=== PATIENT | female | born 1935 | race Caucasian/White ===

== ENCOUNTER → 2018-06-23 | Outpatient (CLI) | payer MEDICARE, BC ==
[~2018-06-23] MED LIST: DENOSUMAB 60 MG/ML 1 ML SYRINGE SQ ONE
[2018-06-23 13:03] VITALS: BP 151/86; PULSE 79; RESP 16; TEMP 97.8
== END | disposition home or self-care (01) ==
LOC: PROCWHC3 12:32
PROVIDERS: ATTEND Internal Medicine
DX: M81.0 Age-related osteoporosis without current pathological fracture (principal)
CPT/HCPCS: 96372; J0897

== ENCOUNTER → 2018-12-23 | Outpatient (CLI) | payer MEDICARE, BC ==
[2018-12-23 13:54] VITALS: BP 117/74; PULSE 69; RESP 16; TEMP 97.4
== END | disposition home or self-care (01) ==
LOC: PROCWHC3 13:23
PROVIDERS: ATTEND Internal Medicine
DX: M81.0 Age-related osteoporosis without current pathological fracture (principal)
CPT/HCPCS: 96372; J0897

== ENCOUNTER → 2019-07-28 | Outpatient (CLI) | payer MEDICARE, BC ==
[~2019-07-28] MED LIST changes: +DENOSUMAB 60 MG/ML 1 ML SYRINGE SQ NR
[2019-07-28 13:41] VITALS: BP 127/78; PULSE 88; RESP 18; TEMP 97.6
== END | disposition home or self-care (01) ==
LOC: PROCWHC3 12:43
PROVIDERS: ATTEND Internal Medicine
DX: M81.0 Age-related osteoporosis without current pathological fracture (principal)
CPT/HCPCS: 96372; J0897

== ENCOUNTER → 2020-04-14 | Outpatient (CLI) | payer MEDICARE, BC ==
--- NOTE | 2020-04-15 11:00 | ECHOF ---
Referral Reason:I51.7 cardiomegaly MEASUREMENTS -------- HEIGHT: 147.3 cm WEIGHT: 63.5 kg BP: 165/74 RVIDd: 3.1 cm (< 3.3) IVSd: 1.1 cm (0.6 - 1.1) LVIDd: 3.8 cm (3.9 - 5.3) LVPWd: 1.1 cm (0.6 - 1.1) IVSs: 1.6 cm LVIDs: 2.5 cm LVPWs: 1.7 cm LA Diam: 3.3 cm (2.7 - 3.8) LAESV Index (A-L): 15.45 ml/m Ao Diam: 2.9 cm (2.0 - 3.7) AV Cusp: 2.0 cm (1.5 - 2.6) MV EXCURSION: 19.848 mm (> 18.000) MV EF SLOPE: 50 mm/s (70 - 150) EPSS: 0.5 cm MV E Tariq: 0.79 m/s MV DecT: 222 ms MV A Tariq: 1.17 m/s MV E/A Ratio: 0.68 RAP: 5.00 mmHg RVSP: 34.74 mmHg FINDINGS -------- Sinus rhythm. This was a technically good study. The left ventricular size is normal. There is borderline concentric left ventricular hypertrophy. Overall left ventricular systolic function is normal with, an EF between 60 - 65 %. The right ventricle is normal in size. Normal LA size by volume 22+/-6 ml/m2. The right atrium is normal in size. Interatrial and interventricular septum intact. There is mild aortic valve sclerosis. The mitral valve is normal. Mild tricuspid regurgitation present. There is mild pulmonary hypertension. The right ventricular systolic pressure, as measured by Doppler, is 34.74mmHg. Trace/mild (physiologic) pulmonic regurgitation. The aortic root size is normal. Normal inferior vena cava with normal inspiratory collapse consistent with estimated right atrial pre ssure of 5 mmHg. There is no pericardial effusion. CONCLUSIONS -------- 1. Sinus rhythm. 2. This was a technically good study. 3. The left ventricular size is normal. 4. There is borderline concentric left ventricular hypertrophy. 5. Overall left ventricular systolic function is normal with, an EF between 60 - 65 %. 6. There is mild aortic valve sclerosis. 7. Mild tricuspid regurgitation present. 8. There is mild pulmonary hypertension. 9. The right ventricular systolic pressure, as measured by Doppler, is 34.74mmHg. 10. Trace/mild (physiologic) pulmonic regurgitation. 11. There is no pericardial effusion. CERTIFIED VETERINARY TECHNICIAN: Bernarda Galaviz RDCS
== END | disposition home or self-care (01) ==
LOC: RADECHMAIN 12:10
PROVIDERS: ATTEND Internal Medicine
DX: I07.1 Rheumatic tricuspid insufficiency (principal); I35.0 Nonrheumatic aortic (valve) stenosis; I27.20 Pulmonary hypertension, unspecified
CPT/HCPCS: 93306

== ENCOUNTER → 2020-07-12 | Outpatient (CLI) | payer MEDICARE, BC ==
[~2020-07-12] MED LIST changes: -DENOSUMAB 60 MG/ML 1 ML SYRINGE SQ ONE
[2020-07-12 14:21] VITALS: BP 142/81; PULSE 93; RESP 16; TEMP 97.6
== END | disposition home or self-care (01) ==
LOC: PROCWHC3 13:55
PROVIDERS: ATTEND Internal Medicine
DX: M81.0 Age-related osteoporosis without current pathological fracture (principal)
CPT/HCPCS: 96372; J0897

== ENCOUNTER → 2021-02-03 | Outpatient (CLI) | payer MEDICARE, BC ==
[2021-02-03 11:26] VITALS: BP 147/79; PULSE 89; RESP 16; TEMP 97.6
== END ==
LOC: PROCWHC3 11:16
PROVIDERS: ATTEND Family Medicine
DX: M81.0 Age-related osteoporosis without current pathological fracture (principal); Z88.0 Allergy status to penicillin; Z88.3 Allergy status to other anti-infective agents
CPT/HCPCS: 96372; J0897

== ENCOUNTER → 2021-10-05 | Outpatient (CLI) | payer MEDICARE, BC ==
[2021-10-05 13:17] VITALS: BP 140/86; PULSE 87; RESP 15; TEMP 97.6
== END | disposition home or self-care (01) ==
LOC: PROCWHC3 12:42
PROVIDERS: ATTEND Family Medicine
DX: M81.0 Age-related osteoporosis without current pathological fracture (principal)
CPT/HCPCS: 96372; J0897

== ENCOUNTER → 2022-04-20 | Outpatient (CLI) | payer MEDICARE, BC ==
[~2022-04-20] MED LIST changes: -DENOSUMAB 60 MG/ML 1 ML SYRINGE SQ NR; +DENOSUMAB 60 MG/ML 1 ML SYRINGE SQ ONE
[2022-04-20 10:31] VITALS: BP 152/67; PULSE 87; RESP 16; TEMP 97.8
== END ==
LOC: PROCWHC3 10:03
PROVIDERS: ATTEND Family Medicine
DX: M81.0 Age-related osteoporosis without current pathological fracture (principal); Z88.1 Allergy status to other antibiotic agents; Z91.041 Radiographic dye allergy status; Z88.8 Allergy status to other drugs, medicaments and biological substances
CPT/HCPCS: 96372; J0897

== ENCOUNTER → 2023-01-04 | Outpatient (CLI) | payer MEDICARE, BC ==
[~2023-01-04] MED LIST changes: +DENOSUMAB 60 MG/ML 1 ML SYRINGE SQ NR; -DENOSUMAB 60 MG/ML 1 ML SYRINGE SQ ONE; +SODIUM CHLORIDE 0.9% 500 ML 500 ML in EMPTY BAG 1 BAG IV PRN
[2023-01-04 08:35] VITALS: BP 153/82; PULSE 62; RESP 16; TEMP 97.4
== END ==
LOC: PROCWHC3 08:22
PROVIDERS: ATTEND Family Medicine
DX: M81.0 Age-related osteoporosis without current pathological fracture (principal); Z91.02 Food additives allergy status; Z88.0 Allergy status to penicillin; Z88.8 Allergy status to other drugs, medicaments and biological substances
CPT/HCPCS: 96372; J0897

== ENCOUNTER → 2023-01-16 | Outpatient (CLI) | payer MEDICARE, BC ==
--- NOTE | 2023-01-16 12:58 | US ---
EXAMINATION TYPE: US carotid duplex BILAT DATE OF EXAM: 01/16/2023 COMPARISON: NONE CLINICAL INDICATION: Female, 87 years old with history of H53.9 VISUAL DISTURBANCE ; visual problems TECHNIQUE: Carotid duplex ultrasound examination. Indirect Doppler criteria was utilized. FINDINGS: EXAM MEASUREMENTS: RIGHT: Peak Systolic Velocity (PSV) cm/sec ----- Right CCA: 107 ----- Right ICA: 115.7 ----- Right ECA: 105.5 ICA/CCA ratio: 1.1 RIGHT: End Diastole cm/sec ----- Right CCA: 29.9 ----- Right ICA: 38.7 ----- Right ECA: 14 LEFT: Peak Systolic Velocity (PSV) cm/sec ----- Left CCA: 114.2 ----- Left ICA: 24.1 ----- Left ECA: 116.7 ICA/CCA ratio: 1.0 LEFT: End Diastole cm/sec ----- Left CCA: 24.1 ----- Left ICA: 34.4 ----- Left ECA: 7 VERTEBRALS (direction of flow): Right Vertebral: Antegrade Left Vertebral: Antegrade Rhythm: Normal PIGMENT GRINDER NOTES: No significant stenosis seen IMPRESSION: Less than 50% stenosis of bilateral carotid bifurcations. Criteria for Assigning % of Stenosis / Diameter reduction (Estimation based on the indirect measurements of the internal carotid artery velocities (ICA PSV). 1. Normal (no stenosis)=ICA PSV < 125 cm/s: ratio < 2.0: ICA EDV<40 cm/s. 2. Less than 50% stenosis=ICA PSV < 125 cm/s: ratio < 2.0: ICA EDV<40 cm/s. 3. 50 to 69% stenosis=ICA PSV of 125 to 230 cm/s: ration 2.0 ? 4.0: ICA EDV 40-100 cm/s. 4. Greater than 70% stenosis to near occlusion= ICA PSV > 230 cm/s: ratio > 4.0: ICA EDV > 100 cm/s. 5. Near occlusion= ICA PSV velocities may be low or undetectable: variable ratio and ICA EDV. 6. Total occlusion=unable to detect flow.
== END | disposition home or self-care (01) ==
LOC: RADUSWWP 10:55
PROVIDERS: ATTEND Family Medicine
DX: I65.23 Occlusion and stenosis of bilateral carotid arteries (principal); H53.9 Unspecified visual disturbance
CPT/HCPCS: 93880

== ENCOUNTER → 2024-01-30 | Outpatient (CLI) | payer MEDICARE, BC ==
[2024-01-30] MEDS: DENOSUMAB 60 MG/ML 1 ML SYRINGE SQ NR (14:12)
[2024-01-30 14:26] VITALS: BP 144/78; PULSE 60; RESP 16; TEMP 97.8
== END ==
LOC: PROCWHC3 13:22
PROVIDERS: ATTEND Family Medicine
DX: M81.0 Age-related osteoporosis without current pathological fracture (principal)
CPT/HCPCS: 96372; J0897

== ENCOUNTER → 2024-08-17 | Outpatient (CLI) | payer MEDICARE, BC ==
[~2024-08-17] MED LIST changes: -SODIUM CHLORIDE 0.9% 500 ML 500 ML in EMPTY BAG 1 BAG IV PRN
[2024-08-17] MEDS: DENOSUMAB 60 MG/ML 1 ML SYRINGE SQ ONE (14:03)
[2024-08-17 14:04] VITALS: BP 134/63; PULSE 67; RESP 16; TEMP 97.9
== END ==
LOC: PROCWHC3 13:50
PROVIDERS: ATTEND Family Medicine
DX: M81.0 Age-related osteoporosis without current pathological fracture (principal)
CPT/HCPCS: 96372; J0897